=== PATIENT | male | born 2000 | race Caucasian/White ===

== ENCOUNTER 2019-05-27 10:54 | Emergency (ER) | payer SELFPAY ==
[~2019-05-27] VITALS: Ht 170.2 cm; Wt 59.2 kg
[~2019-05-27 10:54] MED LIST: CEPH-443 PO; IBUP-1542 PO; SULF1TAB31 PO
[2019-05-27 11:28] VITALS: Ht 170.2 cm; Wt 59.2 kg
[2019-05-27] MEDS ORDERED: LIDOCAINE 1%/EPI 30 ML INJ INJ STA (13:32)
[2019-05-27] MEDS ORDERED: DIPHTH/TET/ACEL PERTUSS (ADULT) 0.5 ML VIAL IM* ONE (14:00)
[2019-05-27] MEDS ORDERED: IBUPROFEN 600 MG TAB PO ONE (14:00)
[2019-05-27 15:54] VITALS: BP 125/70; PULSE 78; RESP 18
== END 2019-05-27 15:54 | disposition home or self-care (01) ==
LOC: FTE 10:54
DX: S11.91XA Laceration without foreign body of unspecified part of neck, initial encounter (principal); S61.412A Laceration without foreign body of left hand, initial encounter; W22.8XXA Striking against or struck by other objects, initial encounter; Y92.9 Unspecified place or not applicable; Z23 Encounter for immunization
CPT/HCPCS: 90471; 90715